=== PATIENT | female | born 1995 | race Caucasian/White ===

== ENCOUNTER → 2021-05-16 16:35 | Observation (INO) ==
[2021-05-16 15:46] LABS: Bacteria,Urine Few per hpf (None-Few); Bilirubin,Urine Negative (Negative); Blood,Urine Negative (Negative); Clarity,Urine Turbid (Clear); Color,Urine Yellow (Yellow); Glucose,Urine (UA) Normal (Normal); Ketones,Urine Negative (Negative); Leukocyte Esterase,Urine Large (Negative); Mucus,Urine Few per lpf (None-Few); Nitrite,Urine Negative (Negative); PH,Urine 6.5 pH Units (5.0-8.0); Protein,Urine 30 mg/dL (Neg-Trace); Renal Epithelial Cells,Urine Few per hpf (None-Few); Specific Gravity,Urine 1.025 (1.010-1.025); Squamous Epithelial Cell,Urine Moderate per hpf (None-Few); Transitional Epi Cells,Urine Few per hpf (None-Few); Uric Acid Crystals,Urine Present per hpf; WBC,Urine 15-30 per hpf (0-3)
== END | disposition home or self-care (01) ==
LOC: 1NENULAB
PROVIDERS: ADMIT Advanced Practice Midwife; ATTEND Advanced Practice Midwife

== ENCOUNTER 2021-06-09 23:05 | Inpatient (IN) ==
[~2021-06-09 23:05] MED LIST: Famotidine 20 MG/2 ML VIAL IVP PRN; Metoclopramide 10 MG/2 ML VIAL IVP PRN; Naloxone 0.4 MG/ML INJ IVP PRN; Ondansetron 4 MG/2 ML VIAL IVP PRN; Oxytocin 20 units/ LR 1000 mL 20 UNIT/1,000 ML BAG IVC SCH; Ringers Solution, Lactated 1,000 ML IVC SCH
[2021-06-09 23:29] LABS: Amphetamine Screen,Urine Negative ng/mL (Cutoff=1000); Barbiturate Screen,Urine Negative ng/mL (Cutoff=200); Benzodiazepines Screen,Urine Negative ng/mL (Cutoff=200); Cannabinoid Screen,Urine Negative ng/mL (Cutoff = 50); Cocaine Screen,Urine Negative ng/mL (Cutoff= 300); Opiate Screen,Urine Negative ng/mL (Cutoff=300); Phencyclidine Screen,Urine Negative ng/mL (Cutoff=25)
[2021-06-09 23:36] LABS: Basophils % 0.2 %; Eosinophils # 0.1 K/mcL (0.0-0.6); Eosinophils % 0.7 %; Hemoglobin 10.5 g/dL (11.5-15.4); Immature Granulocytes % 0.5 % (0-4); Lymphocytes # 1.8 K/mcL (0.6-4.6); Lymphocytes % 12.5 %; Mean Corpuscular HGB Conc 31.8 g/dL (31.6-35.5); Mean Corpuscular Hemoglobin 25.7 pg (28.0-33.3); Mean Corpuscular Volume 80.7 fL (83.0-100.0); Mean Platelet Volume 11.6 fL (9.4-12.4); Monocytes # 0.8 K/mcL (0.0-1.3); Monocytes % 5.6 %; Neutrophils # 11.8 K/mcL (1.6-8.9); Platelet Count 276 K/mcL (140-400); Red Blood Count 4.09 M/mcL (3.82-4.97); Red Cell Distribution Width 12.9 % (11.5-14.5); Segmented Neutrophils % 80.5 %; White Blood Count 14.6 K/mcL (4.3-11.1)
[2021-06-09] MEDS ORDERED: Epidural Premix (fent/bupiv) 110 ML EP SCH (23:45)
[2021-06-09] MEDS ORDERED: EPHEDrine 50 MG/ML VIAL IVP PRN (23:50)
[2021-06-09] MEDS ORDERED: Ropivacaine/PF 0.2% 20 ML VIAL EP ONE (23:50)
[2021-06-09] MEDS ORDERED: *HR* FentaNYL (PF) 100 MCG/2 ML VIAL EP ONE (23:50)
[2021-06-09] MEDS ORDERED: *HR* FentaNYL (PF) 100 MCG/2 ML VIAL ONE (23:53)
[2021-06-09] MEDS ORDERED: Ropivacaine/PF 0.2% 20 ML VIAL ONE (23:53)
[2021-06-09 23:54] LABS: Influenza A PCR Negative (Negative); Influenza B PCR Negative (Negative); Resp. Syncytial Virus PCR Negative (Negative)
[2021-06-09 23:58] LABS: SARS-CoV-2 by PCR (In House) Negative (Negative)
[2021-06-10] MEDS ORDERED: Benzocaine/Menthol 56 GM AEROSOL SPRAY TP PRN (05:42)
[2021-06-10] MEDS ORDERED: Oxytocin 20 units/ LR 1000 mL 20 UNIT/1,000 ML BAG IVC ONE (05:42)
[2021-06-10] MEDS ORDERED: Lanolin 7 G OINT...G. TP PRN (05:42)
[2021-06-10] MEDS ORDERED: Rho Immune Globulin 1,500 UNIT SYRINGE IM PRN (05:42)
[2021-06-10] MEDS ORDERED: Oxytocin 20 units/ LR 1000 mL 20 UNIT/1,000 ML BAG IVC SCH (05:42)
[2021-06-10] MEDS ORDERED: Measles/Mumps/Rubella Vacc 0.5 ML VIAL SQ PRN (05:42)
[2021-06-10] MEDS: Acetaminophen 325 MG TABLET PO PRN ×2 (08:43→16:44)
[2021-06-10] MEDS: Prenatal Vit/FA 1 EACH TABLET PO SCH (08:43)
[2021-06-10] MEDS ORDERED: NON-FORMULARY MEDICATION 1 EACH EACH (Prenatal Vit Calc,Iron,Folic [Prenatal Vitamins] 1 E PO SCH (09:00)
[2021-06-10] MEDS: Ibuprofen 600 MG TABLET PO PRN ×2 (12:28→21:28)
[2021-06-10 21:54] VITALS: O2SAT 100
[2021-06-11 05:42] LABS: Basophils # 0.1 K/mcL (0.0-0.2); Basophils % 0.5 %; Eosinophils # 0.1 K/mcL (0.0-0.6); Eosinophils % 1.3 %; Hematocrit 30.2 % (35.3-44.9); Hemoglobin 9.7 g/dL (11.5-15.4); Immature Granulocytes % 0.4 % (0-4); Lymphocytes # 2.1 K/mcL (0.6-4.6); Lymphocytes % 20.7 %; Mean Corpuscular HGB Conc 32.1 g/dL (31.6-35.5); Mean Corpuscular Hemoglobin 26.4 pg (28.0-33.3); Mean Corpuscular Volume 82.3 fL (83.0-100.0); Mean Platelet Volume 11.6 fL (9.4-12.4); Monocytes # 0.9 K/mcL (0.0-1.3); Monocytes % 8.5 %; Platelet Count 231 K/mcL (140-400); Red Blood Count 3.67 M/mcL (3.82-4.97); Red Cell Distribution Width 12.8 % (11.5-14.5); Segmented Neutrophils % 68.6 %; White Blood Count 10.2 K/mcL (4.3-11.1)
[2021-06-11] MEDS: Ibuprofen 600 MG TABLET PO PRN (06:57)
[2021-06-11 08:33] VITALS: BP 114/71; PULSE 77; TEMP 98.1
[2021-06-11] MEDS: Prenatal Vit/FA 1 EACH TABLET PO SCH (08:52)
[2021-06-11] MEDS: Acetaminophen 325 MG TABLET PO PRN (08:56)
== END 2021-06-11 17:20 | disposition home or self-care (01) | DRG 806 ==
LOC: 1NENULAB → 1NENUOBS 06-10 05:40
PROVIDERS: ADMIT Student in an Organized Health Care Education/Training Program; ATTEND Student in an Organized Health Care Education/Training Program